=== PATIENT | female | born 1990 | race Caucasian/White ===

== ENCOUNTER 2022-06-11 00:02 | Inpatient (IN) | payer OTHER ==
[~2022-06-11] VITALS: Ht 162.6 cm; Wt 114.3 kg
--- NOTE | ~2022-06-11 | OR ---
[facility] [address] [place], [place] [address] Draft DATE OF OPERATION: 06/12/2022 SURGEON: Ale Campos DO PROCEDURE: Primary low-transverse . DESK REPORTER: Stacy Rios M.D. PREOPERATIVE DIAGNOSES: 1. Term , delivered. 2. Arrest of dilation. 3. Gestational diabetes mellitus, diet controlled. 4. Obesity. POSTOPERATIVE DIAGNOSES: 1. Term , delivered. 2. Arrest of dilation. 3. Gestational diabetes mellitus, diet controlled. 4. Obesity. 5. Nuchal cord. ANESTHESIA: Epidural. BLOOD LOSS: 600 mL. FINDING: Term viable male weighing 6 pounds 11 ounces with Apgars of 8 and 9 at 1 and 5 minutes, respectively. Normal-appearing uterus, bilateral tubes and ovaries. No pelvic adhesions noted. INDICATIONS: The patient is a 31-year-old, G1, P0, who initially presented for medical induction of labor for gestational diabetes. She received Cytotec for cervical ripening, amniotomy was performed and she received an epidural for pain management. She was started on low-dose Pitocin and progressed gradually until reaching 7.5 to 8 cm, at which point she failed to progress further. Cervical effacement reached 95%, then began to swell. PATIENT NAME: ELFEGO KUMAR OPERATIVE REPORT DATE OF : [birth year] REPORT #: [id number] PHYSICIAN: ALE CAMPOS DO PCP: LUISA RUIZ PA-C REPORT IS CONFIDENTIAL AND NOT TO BE RELEASED WITHOUT AUTHORIZATION [facility] [address] [place], [place] [address] Draft Treatment of cervical edema with Benadryl was offered and declined. Risks, benefits, and alternatives to for arrest of dilation was discussed with as well as the patient's mother. All questions were answered to the best of my ability to their apparent satisfaction and she elected to proceed. DESCRIPTION OF PROCEDURE: The patient was taken to the operating room. She was given 2 g Ancef IV and azithromycin 500 mg IV and epidural was bolused by Anesthesia. She was positioned in supine position with a leftward tilt and was prepped and draped in normal sterile fashion. A Pfannenstiel incision was made with a scalpel and carried down to the underlying layer of fascia, which was nicked medially and extended laterally with Bryant scissors. Inferior margin of fascia was grasped and elevated with Jayden clamps. Underlying rectus muscles dissected off bluntly and sharply with Bryant scissors. Inferior lip was released. Superior margin was grasped, elevated, and underlying rectus muscle dissected off bluntly and sharply with Bryant scissors. The peritoneum was entered bluntly and extended laterally with digital traction. Andrez retractor was placed. Hysterotomy was performed with a scalpel and upon entry into the uterus, large amounts of thick meconium fluid were noted. Baby's head was easily elevated to the level of the hysterotomy in the OT position and was delivered without difficulty. Anterior posterior shoulder and remainder of the 's body delivered easily after reduction of nuchal cord. The cord was doubly clamped and cut. Baby was immediately handed to waiting nursery team. Cord gases were collected. Cord blood was collected for type and Doni. Placenta was expressed manually. Uterus was cleared of clots and debris and hysterotomy was closed in a two-layer closure, first with 0-Monocryl in a running locked fashion, second with 0-Monocryl in an imbricating manner. Following double closure, hemostasis was noted. Pelvis was suction irrigated with warm sterile saline. Once again, hemostasis noted. Uterus, tubes, and ovaries were inspected with findings as noted above. Peritoneum was closed with 2-0 Vicryl in a running fashion. Rectus muscle was reapproximated midline with 0-Vicryl in simple interrupted fashion. Perforating vessels were cauterized with Bovie cautery and rectus was suction irrigated with warm sterile saline with excellent hemostasis noted. Fascia was closed with 0-Vicryl, working first from the right apex to midline and from its apex to midline in a running fashion. Subcutaneous layer was inspected. Perforating vessels were cauterized with Bovie cautery and irrigated with warm sterile saline with hemostasis noted. Subcutaneous layer was reapproximated with 3-0 Vicryl in a running fashion. Skin was closed with dutch. Uterus was crede'd with minimal bleeding. Sponge and instrument counts were correct. The patient was taken to the recovery room in stable and satisfactory condition with baby [id number]. Of note, immediately after delivery of baby and the placenta, port tone was noted. Tranexamic acid was started as previously planned. Following closure, the hysterotomy port tone was still noted and Methergine was administered. Fundus was firm upon completion of the case. PATIENT NAME: ELFEGO KUMAR OPERATIVE REPORT DATE OF : [birth year] REPORT #: [id number] PHYSICIAN: ALE CAMPOS DO PCP: LUISA RUIZ PA-C REPORT IS CONFIDENTIAL AND NOT TO BE RELEASED WITHOUT AUTHORIZATION [address], [place] [address] Draft DO ASHLEY Pan/MADHAV /[id number] Copies: ~ PATIENT NAME: ELFEGO KUMAR OPERATIVE REPORT DATE OF : [birth year] REPORT #: [id number] PHYSICIAN: ALE CAMPOS DO PCP: LUISA RUIZ PA-C REPORT IS CONFIDENTIAL AND NOT TO BE RELEASED WITHOUT AUTHORIZATION
--- NOTE | 2022-06-11 12:37 | PR ---
[facility] [address] [facility] [place], [place] [address] Signed Progress Notes IP Datetime Report Generated by CPN: 06/11/2022 12:36 PROGRESS NOTES: [id number] Impression: Reassuring Heart Rate Procedures: Artificial ROM Plan: Continue Present Management VITAL SIGNS: [id number] Vital Signs: Reviewed; Within Normal Limits EXAM: [id number] Dilatation: 3.0 Effacement: 80 Station: -3 Contractions: q3-4 min, pt not feeling MEMBRANES: [id number] Membranes Status: Ruptured Comments: Pt progressing, now 3/80/-3. AROM performed without difficulty yielding scant clear fluid. FETUS A: [id number] FHR Baseline: 120 Variability: Moderate 6-25bpm Accelerations: 15X15 Decelerations: Prolonged FHR Category: Category II Presentation: Vertex Comments on Fetus A: isolated prolonged decel @ 0223 FETUS B: [id number] Signing Physician: Ale Campos DO Copies: ~ *Electronically Signed* 06/11/22 1236 ALE CAMPOS DO PATIENT NAME: EDISON KUMARIsaak KRAFT PROGRESS NOTE DATE OF : [birth year] PHYSICIAN: ALE CAMPOS DO [facility] #: [id number] REPORT IS CONFIDENTIAL AND NOT TO BE RELEASED WITHOUT AUTHORIZATION
--- NOTE | 2022-06-11 17:03 | PR ---
[facility] [address] [facility] [place], [place] [address] Signed Progress Notes IP Datetime Report Generated by CPN: 06/11/2022 17:03 PROGRESS NOTES: [id number] Impression: Reassuring Heart Rate Procedures: Sterile Vag Exam Plan: Continue Present Management VITAL SIGNS: [id number] Vital Signs: Reviewed; Within Normal Limits EXAM: [id number] Dilatation: 4.0 Effacement: 80 Station: -3 Contractions: q3-4 min, pt not feeling MEMBRANES: [id number] Membranes Status: Ruptured Comments: No further progression, anticipate starting low-dose pitocin FETUS A: [id number] FHR Baseline: 120 Variability: Moderate 6-25bpm Accelerations: 15X15 Decelerations: Prolonged FHR Category: Category II Presentation: Vertex Comments on Fetus A: isolated prolonged decel @ 0223 FETUS B: [id number] Signing Physician: Ale Campos DO Copies: ~ *Electronically Signed* 06/11/22 1703 ALE CAMPOS DO PATIENT NAME: ELFEGO KUMAR PROGRESS NOTE DATE OF : [birth year] PHYSICIAN: ALE CAMPOS DO RPT #: [id number] REPORT IS CONFIDENTIAL AND NOT TO BE RELEASED WITHOUT AUTHORIZATION
--- NOTE | 2022-06-11 17:54 | PR ---
[facility] [address] [facility] [place], [place] [address] Signed Progress Notes IP Datetime Report Generated by CPN: 06/11/2022 17:54 PROGRESS NOTES: [id number] Impression: Reassuring Heart Rate Procedures: Intrauterine Pressure Catheter; Scalp Electrode; Sterile Vag Exam Plan: Continue Present Management VITAL SIGNS: [id number] Vital Signs: Reviewed; Within Normal Limits EXAM: [id number] Dilatation: 4.0 Effacement: 80 Station: -3 Contractions: q3-4 min, pt not feeling MEMBRANES: [id number] Membranes Status: Ruptured Comments: Contractions and FHR tracing poorly, concerning for possible subtle recurrent lates. Internal monitors placed without difficulty. FETUS A: [id number] FHR Baseline: 120 Variability: Moderate 6-25bpm Accelerations: 15X15 Decelerations: Prolonged FHR Category: Category II Presentation: Vertex Comments on Fetus A: isolated prolonged decel @ 0223 FETUS B: [id number] Signing Physician: Ale Campos DO Copies: ~ *Electronically Signed* 06/11/22 1754 ALE CAMPOS DO PATIENT NAME: ELFEGO KUMAR PROGRESS NOTE DATE OF : [birth year] PHYSICIAN: ALE CAMPOS DO [facility] #: [id number] REPORT IS CONFIDENTIAL AND NOT TO BE RELEASED WITHOUT AUTHORIZATION
--- NOTE | 2022-06-11 19:59 | PR ---
[facility] [address] [facility] [place], [place] [address] Signed Progress Notes IP Datetime Report Generated by CPN: 06/11/2022 19:58 PROGRESS NOTES: [id number] Impression: Arrest of Dilatation/Descent Procedures: Intrauterine Pressure Catheter; Scalp Electrode; Sterile Vag Exam Plan: Augmentation VITAL SIGNS: [id number] Vital Signs: Reviewed; Within Normal Limits EXAM: [id number] Dilatation: 4.0 Effacement: 80 Station: -3 Contractions: q3-4 min, pt not feeling MEMBRANES: [id number] Membranes Status: Ruptured Comments: Minimal further progression; reassuring FHR tracing. CTX not yet adequate; start low-dose pitocin FETUS A: [id number] FHR Baseline: 120 Variability: Moderate 6-25bpm Accelerations: 15X15 Decelerations: Prolonged FHR Category: Category II Presentation: Vertex Comments on Fetus A: isolated prolonged decel @ 0223 FETUS B: [id number] Signing Physician: Ale Campos DO Copies: ~ *Electronically Signed* 06/11/221957 ALE CAMPOS DO PATIENT NAME: ELFEGO KUMAR PROGRESS NOTE DATE OF : [birth year] PHYSICIAN: ALE CAMPOS DO RPT #: [id number] REPORT IS CONFIDENTIAL AND NOT TO BE RELEASED WITHOUT AUTHORIZATION
--- NOTE | 2022-06-12 05:52 | PR ---
[facility] [address] [facility] [place], [place] [address] Signed Progress Notes IP Datetime Report Generated by CPN: 06/12/2022 05:52 PROGRESS NOTES: [id number] Impression: Arrest of Dilatation/Descent Procedures: Intrauterine Pressure Catheter Plan: Continue Present Management; Anesthesia Consult VITAL SIGNS: [id number] Vital Signs: Reviewed; Within Normal Limits EXAM: [id number] Dilatation: 8.0 Effacement: 95 Station: -2 Contractions: q3-4 min, pt not feeling MEMBRANES: [id number] Membranes Status: Ruptured Comments: Continues to progress slowly with pitocin IUPC previously expelled was replaced without difficulty Pt confirms she still strongly desires vaginal delivery Continue repositioning as tolerated FETUS A: [id number] FHR Baseline: 120 Variability: Moderate 6-25bpm Accelerations: 15X15 Decelerations: Prolonged FHR Category: Category II Presentation: Vertex Comments on Fetus A: isolated prolonged decel @ 0223 FETUS B: [id number] Signing Physician: Ale Campos DO Copies: ~ *Electronically Signed* 06/12/22 0552 ALE CAMPOS DO PATIENT NAME: ELFEGO KUMAR PROGRESS NOTE DATE OF : [birth year] PHYSICIAN: ALE CAMPOS DO RPT #: [id number] REPORT IS CONFIDENTIAL AND NOT TO BE RELEASED WITHOUT AUTHORIZATION
--- NOTE | 2022-06-12 10:10 | PR ---
[facility] [address] [place], [place] [address] Signed Progress Notes IP Datetime Report Generated by ANGELICA: 06/12/2022 10:10 PROGRESS NOTES: [id number] Impression: Arrest of Dilatation/Descent Procedures: Intrauterine Pressure Catheter Plan: Deliver- Section Informed Consent Obtain: Section Delivery; Risks, Benefits and Alternatives Discussed VITAL SIGNS: [id number] Vital Signs: Reviewed; Within Normal Limits EXAM: [id number] Dilatation: 8.0 Effacement: 95 Station: -1 Contractions: q3-4 min, pt not feeling MEMBRANES: [id number] Membranes Status: Ruptured Comments: No further progression - pt remains 7.5-8cm, but with cervical edema effacement now palpates as 75%. Significant caput palpable. Offered benadryl for cervical swelling, reviewed risks/ benefits and pt declines. Risks, benefits, alternatives to delivery discussed with pt, her , and pt's mother. All questions were answered to their apparent satisfaction and they elected to proceed. Consents were signed, Ancef 2g and Azithromycin 500mg ordered, plan for TXA 1g once baby delivered. FETUS A: [id number] FHR Baseline: 120 Variability: Moderate 6-25bpm Accelerations: 15X15 Decelerations: Prolonged FHR Category: Category II Presentation: Vertex Comments on Fetus A: isolated prolonged decel @ 0223 FETUS B: [id number] Signing Physician: Ale Campos DO *Electronically Signed* 06/12/22 1010 ALE CAMPOS DO PATIENT NAME: ELFEGO KUMAR SWAPNIL PROGRESS NOTE DATE OF : [birth year] PHYSICIAN: ALE CAMPOS DO RPT #: [id number] REPORT IS CONFIDENTIAL AND NOT TO BE RELEASED WITHOUT AUTHORIZATION
--- NOTE | 2022-06-12 12:05 | NUR ---
06/12/22 1205 Sheets,Alexandra 1129 PT ARRIVED TO ROOM ON RA, AND MOTHER AT BEDSIDE. PT REPORTS NAUSEA AND ALL ROUND BUTCHER AWARE. PT ABLE TO MOVE FEET AND DENIES PAIN. ALL ROUND BUTCHER REQUEST INCREASED FLUIDS, FLUIDS INCREASED. IV IN RIGHT HAND FLUSHED, IV FLUIDS MOVED TO RIGHT ARM DUE TO PT HOLDING BABY. 1135 BABY TO CHEST WITH FBC RN. PT REPORTS NAUSEA IS BETTER. 1150 HOB INCREASED SLIGHTLY AND PT CONTINUES TO DENEIS.
--- NOTE | 2022-06-13 12:47 | PR ---
[facility] [address] [place], [place] [address] Signed PP Progress Notes Datetime Report Generated by CPN: 06/13/2022 12:47 SUBJECTIVE: [id number] Nausea/Vomiting: Denies Flatus: Yes Bowel Movement: Yes Vital Signs: [id number] Vital Signs: Reviewed; Within Normal Limits Cardiovascular: Normal Respiratory: Normal Abdomen/Uterus: Normal Lochia: Normal Extremities: Normal Incision: Normal Progress: Normal Exam Comments: NAD, sitting in chair at bedside Incision dressing in place IMPRESSION/PLAN/PROCEDURES: [id number] Impression: Normal Progression Plan: Continue Present Management Progress Notes: Pt is a 31 yo POD#1 s/p PLTCS for arrest of dilation -Progressing well . Ambulating, voiding, tolerating regular diet, pain well-controlled with orals. +BM. Lochia light. well. -Hgb 11.6 from 12.8 on admission Anticipate DC to home tomorrow Signing Physician: Daniela Campos DO Copies: ~ *Electronically Signed* 06/13/22 1247 DANIELA CAMPOS DO PATIENT NAME: ELFEGO KUMAR PROGRESS NOTE DATE OF : [birth year] PHYSICIAN: DANIELA CAMPOS DO [facility] #: [id number] REPORT IS CONFIDENTIAL AND NOT TO BE RELEASED WITHOUT AUTHORIZATION
--- NOTE | 2022-06-14 08:42 | PR ---
[facility] [address] [place], [place] [address] Signed PP Progress Notes Datetime Report Generated by CPN: 06/14/2022 08:42 SUBJECTIVE: [id number] Pain: Within Normal Limits Pain Comments: Minimal bleeding Nausea/Vomiting: Denies Flatus: Yes Bowel Movement: No Vital Signs: [id number] Vital Signs: Reviewed; Within Normal Limits Notable Details: Incision C_D Cardiovascular: Normal Respiratory: Normal Abdomen/Uterus: Normal Lochia: Normal Vulva/Perineum: Not Done Breasts: Not Done CVA Tenderness: Normal Extremities: Normal Incision: Normal Progress: Normal Exam Comments: NAD, sitting in chair at bedside Incision dressing in place IMPRESSION/PLAN/PROCEDURES: [id number] Impression: Normal Progression Plan: Continue Present Management; Discharge Procedures: None Progress Notes: S: No c/o. Adeq pain relief. Minimal bleeding. Voiding well. Ambulation well O: VSS Afebrile HCT: 35% Abd is soft _ NT, Inciosion C_D Pad: Scant Ext: Neg edema or cords. A: Stable P: DC today DC meds Percocet Precautions and instructions given Signing Physician: Ale Campos DO *Electronically Signed* 06/14/22 0842 ALE CAMPOS DO PATIENT NAME: ELFEGO KUMAR PROGRESS NOTE DATE OF : [birth year] PHYSICIAN: ALE CAMPOS DO RPT #: [id number] REPORT IS CONFIDENTIAL AND NOT TO BE RELEASED WITHOUT AUTHORIZATION [address] [place], [place] [address] Signed Copies: ~ *Electronically Signed* 06/14/22 0842 ALE CAMPOS DO PATIENT NAME: ELFEGO KUMAR PROGRESS NOTE DATE OF : [birth year] PHYSICIAN: ALE CAMPOS DO RPT #: [id number] REPORT IS CONFIDENTIAL AND NOT TO BE RELEASED WITHOUT AUTHORIZATION
== END 2022-06-14 12:10 | disposition home or self-care (01) | DRG 787 ==
LOC: FBC 00:02 → EDSTATUS 00:43 → FBCO 08:27 → FBC 06-14 12:10
PROVIDERS: ADMIT Obstetrics & Gynecology; ATTEND Obstetrics & Gynecology
PROC: 10D00Z1 Extraction of Products of Conception, Low, Open Approach (ICD-10-PCS; principal; 2022-06-12 10:00)
DX: O24.420 Gestational diabetes mellitus in childbirth, diet controlled (principal); O63.9 Long labor, unspecified; O99.354 Diseases of the nervous system complicating childbirth; Z37.0 Single live birth; O99.214 Obesity complicating childbirth; E66.9 Obesity, unspecified; O62.1 Secondary uterine inertia; O69.81X0 Labor and delivery complicated by cord around neck, without compression, not applicable or unspecified; O99.344 Other mental disorders complicating childbirth; F41.9 Anxiety disorder, unspecified; F32.A Depression, unspecified; F43.10 Post-traumatic stress disorder, unspecified; Z87.891 Personal history of nicotine dependence; G47.30 Sleep apnea, unspecified; Z3A.39 39 weeks gestation of pregnancy
CPT/HCPCS: 01961; 36415; 82803; 85027; 86850; 86900; 86901; A9270; J0456; J0690; J1650; J1885; J2001; J2274; J2370; J2405; J2590; J2795; J3010; J7121

== ENCOUNTER 2023-06-21 09:06 | Emergency (ER) | payer OTHER ==
[~2023-06-21] VITALS: Ht 162.6 cm; Wt 97.4 kg
[2023-06-21] MEDS ORDERED: PREDNISONE20 MG PO (13:04)
[2023-06-21] MEDS ORDERED: CYCLOBENZAPRINE10 MG PO (13:04)
[2023-06-21 13:22] VITALS: BP 117/82
== END 2023-06-21 13:18 | disposition home or self-care (01) ==
LOC: ED 09:06
DX: S29.012A Strain of muscle and tendon of back wall of thorax, initial encounter (principal); X58.XXXA Exposure to other specified factors, initial encounter; Z91.040 Latex allergy status; Z91.048 Other nonmedicinal substance allergy status; Z79.899 Other long term (current) drug therapy
CPT/HCPCS: 72080; 96372; 99283-25; J1885

== ENCOUNTER 2024-06-26 20:39 | Emergency (ER) | payer BC ==
[~2024-06-26] VITALS: Ht 162.6 cm; Wt 94.4 kg
[~2024-06-26 20:39] MED LIST: CYCLOBENZAPRINE10 MG PO; PREDNISONE20 MG PO
[2024-06-26] MEDS ORDERED: NEOMYCIN/POLYMYXIN/HYDROCORT 10 ML HOME.PACK OTIC ONE (23:15)
[2024-06-26 23:40] VITALS: BP 112/72
== END 2024-06-26 23:55 | disposition home or self-care (01) ==
LOC: ED 20:39
DX: H60.91 Unspecified otitis externa, right ear (principal); Z91.040 Latex allergy status; Z91.048 Other nonmedicinal substance allergy status; Z79.52 Long term (current) use of systemic steroids
CPT/HCPCS: 99282

== ENCOUNTER 2024-10-18 20:32 | Emergency (ER) | payer BC ==
[~2024-10-18] VITALS: Ht 162.6 cm; Wt 94.8 kg
[2024-10-18] MEDS ORDERED: ondansetron HCL 4 MG/2 ML VIAL IV ONE (22:00)
[2024-10-18 22:06] LABS: BILIRUBIN, URINE NEGATIVE (negative); BLOOD/HGB, URINE LARGE (Negative); KETONE, URINE NEGATIVE (Negative); LEUK ESTERASE, URINE NEGATIVE (negative); NITRITE, URINE NEGATIVE (negative)
[2024-10-18 22:13] LABS: BACTERIA, URINE 1+ /hpf (negative); CASTS, URINE NONE SEEN \\lpf; COLLECTION TYPE, URINE CLEAN CATCH; CRYSTALS, URINE NONE SEEN (0-1+); EPITHELIAL CELLS, URINE SQUAMOUS 2+ /lpf (0-1+); REFLEX CULTURE, URINE No (No)
[2024-10-18 22:32] LABS: BASOPHILS 0.6 % (0-2); EOSINOPHILS 1.8 % (0-6); HEMATOCRIT 39.4 % (35.0-50.0); LYMPHOCYTES 38.7 % (24-44); MCH 32.1 (27-36); MCHC 35.5 g/dl (30-36); MCV 90.4 fl (81-99); MONOCYTES 5.8 % (0-12); NEUTROPHILS 53.1 % (39-80); PLATELET COUNT 295 K/uL (140-440); RBC 4.35 M/ul (4.3-5.7); RDW 12.8 (10.5-15.0)
[2024-10-18 22:51] LABS: ALBUMIN 3.8 g/dL (3.4-5.0); ALBUMIN/GLOBULIN RATIO 1.15 (1.1-2.4); ANION GAP 11.4 (7-21); BILIRUBIN, TOTAL 0.2 mg/dL (0.2-1.0); BUN/CREATININE RATIO 12.04 (6.0-28.6); CALCIUM 8.4 mg/dL (8.5-10.1); CREATININE, SERUM 0.83 mg/dL (0.55-1.02); POTASSIUM 3.4 mmol/L (3.5-5.1); PROTEIN, TOTAL 7.1 g/dL (6.4-8.2)
[2024-10-19 00:58] VITALS: BP 109/66
== END 2024-10-19 01:00 | disposition home or self-care (01) ==
LOC: ED 20:32
PROVIDERS: Internal Medicine
DX: O99.891 Other specified diseases and conditions complicating pregnancy (principal); R10.11 Right upper quadrant pain; Z3A.00 Weeks of gestation of pregnancy not specified; Z91.040 Latex allergy status; Z91.09 Other allergy status, other than to drugs and biological substances
CPT/HCPCS: 36415; 74176; 80053; 81001; 83690; 84703; 85025; 96374; 99284-25; J2405

== ENCOUNTER 2025-06-08 18:58 | Emergency (ER) | payer OTHER ==
[~2025-06-08] VITALS: Ht 162.6 cm; Wt 96.3 kg
[2025-06-08] MEDS ORDERED: ZITHROMAX250 MG PO (19:45)
[2025-06-08] MEDS ORDERED: AZITHROMYCIN 250 MG TAB PO ONE (19:45)
[2025-06-08 19:55] VITALS: BP 116/66
== END 2025-06-08 19:55 | disposition home or self-care (01) ==
LOC: ED 18:58
DX: K04.7 Periapical abscess without sinus (principal); Z88.1 Allergy status to other antibiotic agents; Z91.048 Other nonmedicinal substance allergy status; Z91.040 Latex allergy status
CPT/HCPCS: 64400; 99282-25

== ENCOUNTER 2025-06-17 14:12 | Emergency (ER) | payer OTHER ==
[~2025-06-17] VITALS: Ht 162.6 cm; Wt 95.0 kg
[~2025-06-17 14:12] MED LIST changes: +ZITHROMAX250 MG PO
--- OUTSIDE RECORDS SUMMARY | 2025-06-17 14:19 | XMS ---
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 PHONE: [phone] BAHMAN MURILLO [facility] Current PHONE: [phone] Estephania has no Care Guidelines for this patient. EBenito VISIT COUNT (12 MO.) [address] [facility] TOTAL 4 NOTE: Visits indicate total known visits. ED/UCC VISIT TRACKING (12 MO.) 06/17/2025 14:12 [facility] [place] TYPE: Emergency COMPLAINT: - CHEST INJURY 06/08/2025 18:58 [facility] [place] TYPE: Emergency COMPLAINT: - DENTAL PROBLEM DIAGNOSES: - Allergy status to other antibiotic agents - Latex allergy status - Other nonmedicinal substance allergy status - Other specified disorders of teeth and supporting structures - Periapical abscess without sinus 10/18/2024 20:33 [facility] [place] TYPE: Emergency COMPLAINT: - ABD PAIN DIAGNOSES: - Latex allergy status - Other allergy status, other than to drugs and biological substances - Other specified diseases and conditions complicating - Right upper quadrant pain - Weeks of gestation of not specified 06/26/2024 20:40 [facility] [place] TYPE: Emergency COMPLAINT: - RIGHT EAR PAIN DIAGNOSES: - Latex allergy status - 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
[2025-06-17] MEDS ORDERED: IBUPROFEN 600 MG TAB PO ONE (16:30)
[2025-06-17 20:00] VITALS: BP 132/83
--- NOTE | 2025-06-18 12:12 | EKG ---
[facility] [address] [facility] [place] [address] Signed Normal sinus rhythm with sinus arrhythmia Nonspecific ST abnormality Abnormal ECG No previous ECGs available Confirmed by Larisa Rosales DO ([id number]) on 06/18/2025 12:12:09 PM Electronically Signed By: LARISA ROSALES DO 06/18/251211 PATIENT NAME: ELFEGO KUMAR Electrocardiogram DATE OF : [birth year] PHYSICIAN: LARISA ROSALES DO REPORT #: [id number] REPORT IS CONFIDENTIAL AND NOT TO BE RELEASED WITHOUT AUTHORIZATION
== END 2025-06-17 19:55 | disposition home or self-care (01) ==
LOC: ED 14:12
DX: S20.219A Contusion of unspecified front wall of thorax, initial encounter (principal); S40.022A Contusion of left upper arm, initial encounter; V19.9XXA Pedal cyclist (driver) (passenger) injured in unspecified traffic accident, initial encounter; Z91.040 Latex allergy status; Z79.899 Other long term (current) drug therapy
CPT/HCPCS: 71045; 71250; 93005; 93010; 99285-25; A9270